=== PATIENT | female | born 1985 | race Caucasian/White ===

== ENCOUNTER 2024-02-08 07:19 | Outpatient (REF) | payer BC, SELFPAY ==
[2024-02-08 08:20] LABS: Glucose Fasting 88 mg/dL (60-99)
[2024-02-08 10:09] LABS: Glucose 1 Hour 79 mg/dL
[2024-02-08 10:34] LABS: Glucose 2 Hour 82 mg/dL
[2024-02-08 13:19] LABS: Glucose 3 Hour 31 mg/dL
== END 2024-02-08 07:20 | disposition home or self-care (01) ==
LOC: HO.LAB 07:19
PROVIDERS: PCP Family Medicine; Visit Provider Student in an Organized Health Care Education/Training Program
DX: R55 Syncope and collapse (principal)
CPT/HCPCS: 36415; 82951